=== PATIENT | female | born 1980 | race African-American/Black ===

== ENCOUNTER 2017-10-23 11:23 | Emergency (ER) | payer OTHER ==
[~2017-10-23] VITALS: Ht 165.1 cm; Wt 78.9 kg
[~2017-10-23 11:23] MED LIST: AZITHROMYCIN250 MG ORAL; CLARITIN10 M2 ORAL; FLONASE1 SPRAYS NASAL; LIDOCAINE VISCO20 ML PO; MUCINEX FAST-M1 EAC2 PO; NASONEX17 GM NASAL; NKM; PREDNISONE10 MG ORAL; VALACYCLOVIR500 MG ORAL
[2017-10-23 11:41] VITALS: BP 125/75
[2017-10-23 11:45] VITALS: BP 125/75
--- NOTE | 2017-10-23 13:27 | Emergency Room Report ---
History of Present Illness General Chief Complaint: Upper Respiratory Illness Source: Patient, Medical Record Present Illness HPI 37-year-old female presents ED for evaluation. States that she woke up this morning complaining of sore throat, congestion, runny nose and earache. Pain is throbbing, 6 out of 10, nonradiating. Denies fevers or chills. Denies sick contacts or recent travel. No other aggravating relieving factors. Denies any other associated symptoms Allergies: Coded Allergies: PENICILLINS (Verified Allergy, Unknown, 09/01/15) Patient History Past Medical History: none Past Surgical History: none Pertinent Family History: none Social History: Denies: smoking, alcohol use, drug use Last Menstrual Period: 10/21/17 Now: No Immunizations: UTD Reviewed Nursing Documentation: PMH: Agreed; PSxH: Agreed Nursing Documentation-PMH Past Medical History: No History, Except For Review of Systems All Other Systems: negative except mentioned in HPI Physical Exam Vital Signs Date Time Temp Pulse Resp B/P (MAP) Pulse Ox O2 Delivery O2 Flow Rate FiO2 10/23/17 11:29 98.0 76 18 125/75 98 Room Air 98.1 Sp02 EP Interpretation: reviewed, normal General Appearance: no apparent distress, alert, GCS 15, non-toxic Head: normocephalic, atraumatic Eyes: bilateral eye normal inspection, bilateral eye PERRL ENT: hearing grossly normal, normal pharynx, no angioedema, normal voice Neck: full range of motion, supple/symm/no masses Respiratory: chest non-tender, lungs clear, normal breath sounds, speaking full sentences Cardiovascular #1: regular rate, rhythm, no edema Cardiovascular #2: 2+ carotid (R), 2+ carotid (L), 2+ radial (R), 2+ radial (L) , 2+ dorsalis pedis (R), 2+ dorsalis pedis (L) Gastrointestinal: normal bowel sounds, non tender, soft, non-distended, no guarding, no rebound Rectal: deferred Genitourinary: normal inspection, no CVA tenderness Musculoskeletal: back normal, gait/station normal, normal range of motion, non- tender Neurologic: alert, oriented x3, responsive, motor strength/tone normal, sensory intact, speech normal Psychiatric: judgement/insight normal, memory normal, mood/affect normal, no suicidal/homicidal ideation Reflexes: 3+ bicep (R), 3+ bicep (L), 3+ tricep (R), 3+ tricep (L), 3+ knee (R) , 3+ knee (L) Skin: normal color, no rash, warm/dry, well hydrated Lymphatic: no adenopathy Medical Decision Making Diagnostic Impression: Primary Impression: Upper respiratory infection Qualified Codes: J06.9 - Acute upper respiratory infection, unspecified ER Course Hospital Course 37-year-old female presents to ED complaining of sorethroat, cough, congestion x1 day Differential diagnoses include: URI, pharyngitis, otitis media, asthma Clinical course Patient placed on stretcher. After initial history, physical exam reveals a young male in no acute distress. Bilateral TM unremarkable. No pharyngeal erythema. No tonsillar exudates. No lymphadenopathy. lungs clear. abdomen soft. Clinical findings consistent with URI. Reassurance given to parents. treatment is supportive therapy Diagnosis - URI Stable and discharged home. Instructed to followup with PMD. Return to ED if symptoms recur or worsen Last Vital Signs Date Time Temp Pulse Resp B/P (MAP) Pulse Ox O2 Delivery O2 Flow Rate FiO2 10/23/17 11:45 98.1 80 18 125/75 98 Room Air 98.1 Status: improved Disposition: HOME, SELF-CARE Condition: Stable Referrals: NON PHYSICIAN (PCP) Patient Instructions: Upper Respiratory Infection, Adult Shalom Ma MD October 23, 2017 13:27
== END 2017-10-23 13:00 | disposition home or self-care (01) ==
LOC: EMR 11:45
DX: J06.9 Acute upper respiratory infection, unspecified (principal); Z88.0 Allergy status to penicillin
CPT/HCPCS: 99283

== ENCOUNTER 2018-09-27 13:19 | Emergency (ER) | payer OTHER ==
[~2018-09-27] VITALS: Ht 165.1 cm; Wt 77.1 kg
[2018-09-27 13:24] VITALS: BP 103/65
--- NOTE | 2018-09-27 13:31 | NUR ---
ED Nurse Note: Patient presents to ER due to flu-like symptoms. c/o painful, persistent cough, bodyache and decreased appetite. Reports no rash, fever, chills or N/V/D. Regular, unlabored breathing noted. Provided mask. No facial grimacing or guarding noted.
--- NOTE | 2018-09-27 13:41 | NUR ---
ED Nurse Note: RT contacted for breathing treatment
[2018-09-27] MEDS ORDERED: PREDNISONE20 MG ORAL (13:42)
[2018-09-27] MEDS ORDERED: ZYRTEC10 MG ORAL (13:42)
[2018-09-27] MEDS ORDERED: ALBUTEROL SULF8.5 GM INH (13:42)
--- NOTE | 2018-09-27 13:42 | Emergency Room Report ---
History of Present Illness General Chief Complaint: Upper Respiratory Illness Source: Patient Present Illness HPI 38-year-old female presents with 2 days of flulike symptoms. Associated symptoms include body aches, chills, sinus pressure, and chest congestion. States that she is taking ibuprofen for her frontal sinus pain without improvement of symptoms. She admits to having a history of chronic allergies and sinus problems. She is not taking any allergy medications at this time. Patient denies any current n/v/f/c/d, abd pain, back pain, neck pain, photophobia, phonophobia, CP, SOB or headache. Allergies: Coded Allergies: PENICILLINS (Verified Allergy, Unknown, 09/01/15) Patient History Past Medical History: see triage record Past Surgical History: none Pertinent Family History: none Social History: Reports: smoking Last Menstrual Period: 09/19/2018 Now: No Reviewed Nursing Documentation: PMH: Agreed; PSxH: Agreed Nursing Documentation-PMH Past Medical History: No Stated History Review of Systems All Other Systems: negative except mentioned in HPI Physical Exam Vital Signs Date Time Temp Pulse Resp B/P (MAP) Pulse Ox O2 Delivery O2 Flow Rate FiO2 09/27/18 13:24 99.3 88 16 103/65 99 Room Air Sp02 EP Interpretation: reviewed, normal General Appearance: no apparent distress, alert, GCS 15, non-toxic Head: normocephalic, atraumatic Eyes: bilateral eye normal inspection, bilateral eye PERRL ENT: hearing grossly normal, normal pharynx, no angioedema, normal voice, TMs + canals normal Neck: full range of motion, supple/symm/no masses Respiratory: chest non-tender, normal breath sounds, speaking full sentences, wheezing - mild scattered Cardiovascular #1: regular rate, rhythm, no edema Musculoskeletal: gait/station normal Neurologic: alert, oriented x3, responsive, motor strength/tone normal, sensory intact, speech normal Psychiatric: judgement/insight normal, memory normal, mood/affect normal, no suicidal/homicidal ideation Skin: normal color, no rash, warm/dry, well hydrated Medical Decision Making PA Attestation Dr. Dwyer is my supervising physician with whom patient management has been discussed with. Diagnostic Impression: Primary Impression: Upper respiratory infection Qualified Codes: J06.9 - Acute upper respiratory infection, unspecified ER Course 38-year-old female with upper respiratory symptoms for 2 days. On exam she has no signs of hypoxia and stable vital signs. She has nasal congestion no signs of bacterial infection. She was given DuoNeb with improvement of symptoms. At this time the patient appears stable for discharge home without any emergent exam findings. Will provide printed patient care instructions, and any necessary prescriptions. Care plan and follow up instructions have been discussed with the patient prior to discharge. Last Vital Signs Date Time Temp Pulse Resp B/P (MAP) Pulse Ox O2 Delivery O2 Flow Rate FiO2 09/27/18 13:30 88 16 Room Air 09/27/18 13:24 99.3 103/65 99 Status: improved Disposition: HOME, SELF-CARE Condition: Stable Scripts Cetirizine Hcl* (ZYRTEC*) 10 Mg Tablet 10 MG ORAL DAILY, #14 TAB 0 Refills Prov: Lamin Stringer 09/27/18 Prednisone* (PREDNISONE*) 20 Mg Tablet 40 MG ORAL DAILY for 5 Days, #10 TAB Prov: Lamin Stringer 09/27/18 Albuterol Sulfate* (ALBUTEROL SULFATE MDI*) 8.5 Gm Hfa.aer.ad 2 PUFF INH Q4H, #1 INH 0 Refills Prov: Lamin Stringer 09/27/18 Patient Instructions: Upper Respiratory Infection, Adult Additional Instructions: Take medication as directed. Drink plenty of fluids which include Gatorade and water. Get plenty of rest. Avoid taking medications on an empty stomach. If you have cough avoid dairy and cold beverages. If you have a fever, headache or body aches please take [id number] tylenol/motrin/advil unless a prescription for these symptoms have been given. If your symptoms are worsening or you have shortness or breath, severe headaches or chest pain, please call 911 or go to the ER. Lamin Stringer Sep 27, 2018 13:42
[2018-09-27] MEDS: Albuterol/Ipratropium 3ml neb HHN ONE (13:55)
--- NOTE | 2018-09-27 14:36 | NUR ---
ED Nurse Note: pt cleared to be d/c per ERMD, pt reports breathing is better with breathing tx, pt discharge and aftercare instruction provided w/ prescription, pt education done via discussion and handout, pt advised to follow up with pcp or return to ed if changes in condition, pt verbalized understanding and agrees with plan, vss, ambulatory w/ steady gait, left w/ all belongings, ID band removed.
[2018-09-27 14:37] VITALS: BP 109/76
== END 2018-09-27 14:36 | disposition home or self-care (01) ==
LOC: EMR 13:29
DX: J06.9 Acute upper respiratory infection, unspecified (principal); Z88.0 Allergy status to penicillin
CPT/HCPCS: 94640; 94664; 99284; J7620